=== PATIENT | female | born 1965 | race Caucasian/White ===

== ENCOUNTER → 2017-02-06 | Outpatient (CLI) | payer BC ==
[~2017-02-06] MED LIST: CETI10CA PO; CIPR500T78 PO; METR500T PO; PARO10TA21 PO; SIMV40TA4 PO
--- NOTE | 2017-02-07 13:44 | Diagnostic Imaging Report ---
EXAMINATION: Bilateral screening mammogram with a Computer Aided Detection (CAD) system. INDICATION: Screening. PERSONAL HISTORY: No current complaints stated on the questionnaire. COMPARISON: 10/26/2015. FINDINGS: The breasts are composed of scattered fibroglandular densities. No suspicious calcification or mass is seen. Allowing for technique and positional differences, no suspicious change is seen. IMPRESSION: No significant change. ACR BI-RADS Category 2: Benign findings. Result letter will be mailed to the patient. Note: At least 10% of breast cancer is not imaged by mammography. Dictated by: Dictated on workstation # [id number]
== END ==
LOC: RAD 08:45
PROVIDERS: ATTEND Family Medicine
DX: Z12.31 Encounter for screening mammogram for malignant neoplasm of breast (principal)
CPT/HCPCS: 77067

== ENCOUNTER → 2020-06-01 | Outpatient (CLI) | payer BC ==
[~2020-06-01] VITALS: Ht 160 cm; Wt 63.0 kg
[~2020-06-01] MED LIST changes: +ASPI-999 PO; +ATOR80TA76 PO; +CATHETER FLUSH 10 ML SYR IV PRN; +CETI10TA21 PO; +CLOP75TA28 PO; +FAMO20TA5 PO; +METO50TA7 PO; +NITR-65 PO; +REGADENOSON 0.4 MG/5 ML SYR (LEXISCAN) IV ONE
[2020-06-01 09:48] VITALS: BP 157/87
--- NOTE | 2020-06-01 19:49 | STRESS TEST ---
DATE OF SERVICE: 06/01/2020 RESTING AND POST REGADENOSON TECHNETIUM-99M TETROFOSMIN SPET CT IMAGING ORDERING PHYSICIAN: Dr. Hall. PRIMARY PHYSICIAN: Dr. He. CLINICAL DIAGNOSIS: Coronary artery disease. Baseline images were carried out after injection of 10.09 mCi of technetium-99m Tetrofosmin. This was followed by 0.4 mg regadenoson and 32.9 mCi of technetium-99m Tetrofosmin for stress imaging. The electrocardiogram showed sinus rhythm at baseline. The electrocardiogram did not change significantly with regadenoson infusion. The patient noted mild shortness of breath and a headache following regadenoson infusion, which resolved in a few minutes. Review of images at rest and following stress indicates anteroapical perfusion defect that is mostly fixed. Gated images show well preserved global left ventricular systolic function with a calculated ejection fraction of 52%. There is localized anteroapical hypokinesis to akinesis. Left ventricular end diastolic volume is 55 mL. TID is absent (0.98). CONCLUSIONS: 1. This study indicates an anteroapical infarction with a small amount of cholo-infarct ischemia. 2. Localized anteroapical hypokinesis to akinesis. 3. Well preserved global left ventricular systolic function with a calculated ejection fraction of 52%. Job ID: [id number] DocumentID: [id number] Dictated Date: 06/01/2020 15:11:26 Slope Tender Date: 06/01/2020 19:47:55 Dictated By: ISMAEL HALL MD, MA, FACP, FACC,
== END ==
LOC: CARD 07:53
PROVIDERS: ATTEND Internal Medicine Cardiovascular Disease
DX: I25.2 Old myocardial infarction (principal); I25.10 Atherosclerotic heart disease of native coronary artery without angina pectoris; I11.9 Hypertensive heart disease without heart failure; I65.23 Occlusion and stenosis of bilateral carotid arteries; E78.5 Hyperlipidemia, unspecified; I25.89 Other forms of chronic ischemic heart disease; Z95.5 Presence of coronary angioplasty implant and graft; Z72.0 Tobacco use
CPT/HCPCS: 78452; 93017; A9502

== ENCOUNTER → 2021-07-20 | Outpatient (CLI) | payer BC ==
[~2021-07-20] MED LIST changes: -CATHETER FLUSH 10 ML SYR IV PRN; -CETI10TA21 PO; +CETI10TA49 PO; -REGADENOSON 0.4 MG/5 ML SYR (LEXISCAN) IV ONE
--- NOTE | 2021-07-20 11:32 | Diagnostic Imaging Report ---
CLINICAL INDICATION: Patient with left calf pain. COMPARISON: None. PROCEDURE: Real-time left lower extremity venous Doppler duplex evaluation is performed from the inguinal region through the popliteal fossa. The calf venous structures are also evaluated. FINDINGS: The deep venous system is well visualized and is easily compressible. There is no evidence of deep venous thrombosis, valvular incompetence, or significant collateral circulation. IMPRESSION: There is no ultrasound Doppler evidence of deep venous thrombosis in the left lower extremity. Dictated by: Dictated on workstation # [id number]
== END ==
LOC: RAD 10:29
PROVIDERS: ATTEND Family Medicine
DX: M79.662 Pain in left lower leg (principal)

== ENCOUNTER 2022-01-24 12:59 | Observation (INO) | payer BC ==
[2022-01-24] VITALS (12 sets, daily range): BP systolic 106–151; BP diastolic 70–94
[~2022-01-24] VITALS: Ht 160 cm; Wt 63.2 kg
[2022-01-24] MEDS ORDERED: ASPIRIN 81 MG CHEW (CHILDREN'S ASA) PO ONE (13:30)
[2022-01-24] MEDS ORDERED: NITROGLYCERIN 0.4 MG SL TABS BTL 25'S SL ONE (13:42)
--- NOTE | 2022-01-24 13:43 | ED Chest Pain ---
General Chief Complaint: Chest Pain Stated Complaint: CP Source: patient Exam Limitations: no limitations History of Present Illness Date Seen by Provider: Jan 24, 2022 Time Seen by Provider: 13:33 Initial Comments PT ARRIVED BY PRIVATE VEHICLE WITH CHIEF COMPLAINT OF CHEST PAIN. PT WAS ALERT, ORIENTED X 4 AND AMBULATORY ON ARRIVAL. PT STATED ONSET WAS 1230 WHEN SHE WAS BENDING DOWN TO GET SOMETHING AND IT STARTED. NOTHING MAKES IT BETTER OR WORSE. PT HAS TAKEN 81 MG OF ASPIRIN. PT STATED PAIN IS STEADY ON LEFT SIDE OF CHEST WITH A SEVERITY OF 3/10 ON PAIN SCALE. PT DENIES ANY RADIATION TO BACK, JAW OR ARM. PT STATED SHE HAS HISTORY OF A HEART ATTACK AND PREVIOUSLY HAD A STENT PLACED. PT TAKES PLAVIX EVERY OTHER DAY. PT HAD COVID IN NOV 2021 AND HAS HAD A COUGH SINCE, BUT NO NEW COUGH OR PRODUCTION. PT DENIES FEVER, CHILLS, OR SOB. Location Injury Occurred: LEFT SIDE CHEST PAIN Timing/Duration: 1 hour Severity/Quality: mild Location: central Radiation: no radiation Activities at Onset: other (BENDING OVER TO GRAB SOMETHING UNDERNEATH HER DESK) Prior CP/Workup: cardiac cath, heart attack ASA po AIR TUBE RELEASER: Yes (81MG ASPIRIN AT HOME) NTG SL AIR TUBE RELEASER: No Associated Symptoms: No fever/chills, No shortness of breath Allergies and Home Medications Allergies Coded Allergies: Sulfa (Sulfonamide Antibiotics) (Unverified Allergy, Unknown, 10/21/14) Patient Home Medication List Home Medication List Reviewed: Yes Aspirin (Aspirin) 81 Mg Tab.chew, 81 MG PO DAILY Prescribed by: CHRIS TSAI on 08/14/19 1232 Atorvastatin Calcium (Atorvastatin Calcium) 80 Mg Tablet, 80 MG PO HS Prescribed by: CHRIS TSAI on 08/14/19 1232 Cetirizine HCl (Zyrtec) 10 Mg Tablet, 10 MG PO DAILY PRN for ALLERGIES, (Reported) Entered as Reported by: MIRZA CHANCE on 08/13/19 1030 Clopidogrel Bisulfate (Clopidogrel) 75 Mg Tablet, 75 MG PO DAILY Prescribed by: CHRIS TSAI on 08/14/19 1232 Famotidine (Famotidine) 20 Mg Tablet, 20 MG PO BID Prescribed by: CHRIS TSAI on 08/14/19 1232 Metoprolol Succinate (Metoprolol Succinate) 50 Mg Tab.er.24h, 50 MG PO DAILY Prescribed by: CHRIS TSAI on 08/14/19 1232 Nitrofurantoin Monohyd/M-Cryst (Macrobid 100 mg Capsule) 100 Mg Capsule, 1 TAB PO BID Prescribed by: CAM OLIVEIRA on 08/14/19 1624 Review of Systems Review of Systems Constitutional: see HPI; No fever EENTM: No Symptoms Reported, See HPI Respiratory: See HPI, Cough Cardiovascular: See HPI, Chest Pain Gastrointestinal: No Symptoms Reported, See HPI Genitourinary: No Symptoms Reported, See HPI Musculoskeletal: no symptoms reported, see HPI Skin: no symptoms reported, see HPI Psychiatric/Neurological: No Symptoms Reported, See HPI Endocrine: No Symptoms Reported, See HPI Hematologic/Lymphatic: No Symptoms Reported, See HPI Past Lronzix-Nqetrp-Ajagxm Hx Seasonal Allergies Seasonal Allergies: Yes Past Medical History Surgeries: Yes Appendectomy, Section, Hysterectomy, Oophorectomy, Orthopedic, Tonsillectomy Respiratory: No Cardiac: Yes High Cholesterol, Hypertension Neurological: No 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 Gastrointestinal: Yes (COLONOSCOPY 2010) Polyps Musculoskeletal: No Endocrine: No Cancer: No Psychosocial: Yes Anxiety Integumentary: No Blood Disorders: No Family Medical History Cardiovascular disease 19 MOTHER, Onset:50's - 60 FH: atrial fibrillation G8 BROTHER, Onset:Unknown Glaucoma Hypercholesterolemia G8 SISTER, Onset:Unknown Hypertension G8 SISTER, Onset:Unknown Kidney disease 19 FATHER, , Onset:60 years & older Physical Exam Vital Signs Vital Signs - First Documented 01/24/22 13:13 Temp 36.9 Pulse 67 Resp 18 B/P (MAP) 147/89 (108) Pulse Ox 97 Capillary Refill : Height, Weight, BMI Height: 5'3" Weight: 140lbs. oz. 63.127441wn; 24.60 BMI Method:Stated General Appearance: No Apparent Distress Neck: Full Range of Motion, Normal Inspection Respiratory: Lungs Clear, Normal Breath Sounds, No Accessory Muscle Use Cardiovascular: Regular Rate, Rhythm, No Gallop, No Murmur Gastrointestinal: Normal Bowel Sounds Extremity: Normal Capillary Refill, Normal Range of Motion Neurologic/Psychiatric: Alert, Oriented x3, Normal Mood/Affect Skin: Normal Color, Warm/Dry Progress/Results/Core Measures Results/Orders Lab Results Laboratory Tests Test 01/24/22 13:39 Range/Units White Blood Count 7.0 4.3-11.0 10^3/uL Red Blood Count 4.10 3.80-5.11 10^6/uL Hemoglobin 13.6 11.5-16.0 g/dL Hematocrit 40 35-52 % Mean Corpuscular Volume 98 80-99 fL Mean Corpuscular Hemoglobin 33 25-34 pg Mean Corpuscular Hemoglobin Concent 34 32-36 g/dL Red Cell Distribution Width 12.4 10.0-14.5 % Platelet Count 279 130-400 10^3/uL Mean Platelet Volume 9.6 9.0-12.2 fL Immature Granulocyte % (Auto) 0 % Neutrophils (%) (Auto) 61 42-75 % Lymphocytes (%) (Auto) 28 12-44 % Monocytes (%) (Auto) 9 0-12 % Eosinophils (%) (Auto) 2 0-10 % Basophils (%) (Auto) 0 0-10 % Neutrophils # (Auto) 4.2 1.8-7.8 10^3/uL Lymphocytes # (Auto) 1.9 1.0-4.0 10^3/uL Monocytes # (Auto) 0.6 0.0-1.0 10^3/uL Eosinophils # (Auto) 0.2 0.0-0.3 10^3/uL Basophils # (Auto) 0.0 0.0-0.1 10^3/uL Immature Granulocyte # (Auto) 0.0 0.0-0.1 10^3/uL Prothrombin Time 12.6 12.2-14.7 SEC INR Comment 0.9 0.8-1.4 Activated Partial Thromboplast Time 32 24-35 SEC D-Dimer 1.73 H 0.00-0.49 UG/ML Sodium Level 142 135-145 MMOL/L Potassium Level 4.1 3.6-5.0 MMOL/L Chloride Level 108 H 98-107 MMOL/L Carbon Dioxide Level 20 L 21-32 MMOL/L Anion Gap 14 5-14 MMOL/L Blood Urea Nitrogen 9 7-18 MG/DL Creatinine 0.75 0.60-1.30 MG/DL Estimat Glomerular Filtration Rate 93 BUN/Creatinine Ratio 12 Glucose Level 102 70-105 MG/DL Calcium Level 10.0 8.5-10.1 MG/DL Corrected Calcium 9.8 8.5-10.1 MG/DL Magnesium Level 2.0 1.6-2.4 MG/DL Total Bilirubin 0.4 0.1-1.0 MG/DL Aspartate Amino Transf (AST/SGOT) 22 5-34 U/L Alanine Aminotransferase (ALT/SGPT) 18 0-55 U/L Alkaline Phosphatase 124 40-136 U/L Myoglobin 20.2 10.0-92.0 NG/ML Troponin I < 0.028 <0.028 NG/ML B-Type Natriuretic Peptide 124.1 H <100.0 PG/ML Total Protein 7.5 6.4-8.2 GM/DL Albumin 4.3 3.2-4.5 GM/DL My Orders Orders - LA COELHO HELPDESK MANAGER Cbc With Automated Diff (01/24/22 13:17) Magnesium (01/24/22 13:17) Chest 1 View, Ap/Pa Only (01/24/22 13:17) Ekg Tracing (01/24/22 13:17) Comprehensive Metabolic Panel (01/24/22 13:17) Myoglobin Serum (01/24/22 13:17) Protime With Inr (01/24/22 13:17) Partial Thromboplastin Time (01/24/22 13:17) O2 (01/24/22 13:17) Monitor-Rhythm Ecg Trace Only (01/24/22 13:17) Lipid Panel (01/25/22 06:00) Ed Iv/Invasive Line Start (01/24/22 13:17) Bnp Gifty (01/24/22 13:17) Fibrin Degradation Products (01/24/22 13:17) Troponin I [place] (01/24/22 13:17) Aspirin Chewable Tablet (Baby Aspirin Ch (01/24/22 13:30) Nitroglycerin 0.4 Mg Btl 25's (Nitrostat (01/24/22 13:42) Ct Angio Chest W (01/24/22 14:25) Iohexol Injection (Omnipaque 350 Mg/Ml 1 (01/24/22 14:45) Received Contrast (Hold Metformin- Contr (01/24/22 14:45) Sodium Chloride Flush (Catheter Flush Sy (01/24/22 14:45) Ns (Ivpb) (Sodium Chloride 0.9% Ivpb Bag (01/24/22 14:45) Medications Given in ED Current Medications Medications Dose Ordered Sig/La Route Start Time Stop Time Status Last Admin Dose Admin Aspirin 324 mg ONCE ONCE PO 01/24/22 13:30 01/24/22 13:31 DC 01/24/22 13:43 324 MG Iohexol 75 ml ONCE ONCE IV 01/24/22 14:45 01/24/22 14:46 DC 01/24/22 14:45 66 ML Nitroglycerin 0.4 mg STK-MED ONCE SL 01/24/22 13:42 01/24/22 13:46 DC 01/24/22 13:43 0.4 MG Sodium Chloride 100 ml ONCE ONCE IV 01/24/22 14:45 01/24/22 14:46 DC 01/24/22 14:46 80 ML Vital Signs/I&O 01/24/22 13:13 Temp 36.9 Pulse 67 Resp 18 B/P (MAP) 147/89 (108) Pulse Ox 97 Departure Communication (Admissions) NAME: LOIS COLLIER [facility] REC#: [id number] PT STATUS: REG ER : 1965 PHYSICIAN: LA COELHO HELPDESK MANAGER ADMIT DATE: 01/24/22/ER Draft Date of Exam:01/24/22 CT ANGIO CHEST W EXAMINATION: CT angiography of the chest. TECHNIQUE: Contrast enhanced thin section helical images were obtained through the chest with intravenous contrast timed for the optimal opacification of the arterial structures per CTA protocol. Post-processing, reconstructions and interpretation of angiographic images of the vessels was performed. 3D MIP reconstructions were performed and reviewed. All CT scans use one or more of the following dose optimizing techniques: Automated exposure control, MA and/or KvP adjustment based on a patient size and exam type, or iterative reconstruction. HISTORY: Chest pain and elevated D-dimer. COMPARISON: None available. FINDINGS: There is no pulmonary embolism. There is no edema or pneumonia. No pleural effusion. No pneumothorax. No suspicious nodules. There is no axillary or supraclavicular lymphadenopathy. There is no mediastinal lymphadenopathy. Heart size is normal. There are mild coronary artery calcifications. No pericardial effusion. Aorta is normal in caliber. Limited views of the upper abdomen are unremarkable. There are no suspicious osseous lesions. IMPRESSION: 1. No pulmonary embolism, clear lungs. Dictated on workstation # [id number] Dict: 01/24/22 1449 Trans: 01/24/22 1453 [id number] Interpreted by: IRIS SANTANA MD Electronically signed by: 1441-the 2 nitroglycerin temporarily took her pain from a 3 out of 10 down to 1 out of 10 though it has returned at this time. Its only a 3 out of 10. I offered her something more for pain though she states she does not want anything else at this time. D-dimer is a little elevated so we will get a CT angio chest. 1524-spoke with Dr. Telles and Dr. TSAI. Given the ongoing chest pain will admit. Observation status, serial troponins. Impression Primary Impression: Chest pain Disposition: ADMITTED INPATIENT Condition: Stable Admissions Decision to Admit Reason: Admit from ER (General) Decision to Admit/Date: Jan 24, 2022 Time/Decision to Admit Time: 15:24 Departure-Patient Inst. Referrals: CHRIS TSAI DO (PCP/Family) Primary Care Physician LA COELHO APRN Jan 24, 2022 13:43
[2022-01-24 13:48] LABS: BASOPHILS % (AUTO) 0 % (0-10); EOSINOPHILS # (AUTO) 0.2 10^3/uL (0.0-0.3); EOSINOPHILS % (AUTO) 2 % (0-10); HEMATOCRIT 40 % (35-52); HEMOGLOBIN 13.6 g/dL (11.5-16.0); LYMPHOCYTES # (AUTO) 1.9 10^3/uL (1.0-4.0); LYMPHOCYTES % (AUTO) 28 % (12-44); MEAN CORPUSCULAR HEMOGLOBIN 33 pg (25-34); MEAN CORPUSCULAR HGB CONC 34 g/dL (32-36); MEAN CORPUSCULAR VOLUME 98 fL (80-99); MEAN PLATELET VOLUME 9.6 fL (9.0-12.2); MONOCYTES # (AUTO) 0.6 10^3/uL (0.0-1.0); MONOCYTES % (AUTO) 9 % (0-12); NEUTROPHILS # (AUTO) 4.2 10^3/uL (1.8-7.8); NEUTROPHILS % (AUTO) 61 % (42-75); PLATELET COUNT 279 10^3/uL (130-400)
[2022-01-24 14:05] LABS: ALBUMIN 4.3 GM/DL (3.2-4.5)
[2022-01-24 14:06] LABS: POTASSIUM 4.1 MMOL/L (3.6-5.0)
[2022-01-24 14:08] LABS: TOTAL PROTEIN 7.5 GM/DL (6.4-8.2)
[2022-01-24 14:10] LABS: BILIRUBIN,TOTAL 0.4 MG/DL (0.1-1.0)
[2022-01-24 14:12] LABS: CREATININE SERUM 0.75 MG/DL (0.60-1.30); INR 0.9 (0.8-1.4); PROTHROMBIN TIME PATIENT 12.6 SEC (12.2-14.7)
--- NOTE | 2022-01-24 14:18 | Diagnostic Imaging Report ---
INDICATION: Chest pain. COMPARISON: 08/12/2019. FINDINGS: Single frontal view of the chest demonstrates normal heart size and pulmonary vascularity. The lungs are well aerated and clear. No large pleural effusion or pneumothorax is seen. The visualized osseous structures show no acute abnormalities. IMPRESSION: 1. No acute cardiopulmonary process. Dictated by: Dictated on workstation # [id number]
[2022-01-24] MEDS ORDERED: HOLD METFORMIN - RECEIVED CONTRAST 20 ML VIAL IV SCH (14:45)
[2022-01-24] MEDS ORDERED: IOHEXOL 350 MG/ML 100 ML (OMNIPAQUE 350) VIAL IV ONE (14:45)
[2022-01-24] MEDS ORDERED: NS 100 ML (IVPB) BAG IV ONE (14:45)
[2022-01-24] MEDS ORDERED: CATHETER FLUSH 10 ML SYR IV PRN (14:45)
--- NOTE | 2022-01-24 14:53 | Diagnostic Imaging Report ---
EXAMINATION: CT angiography of the chest. TECHNIQUE: Contrast enhanced thin section helical images were obtained through the chest with intravenous contrast timed for the optimal opacification of the arterial structures per CTA protocol. Post-processing, reconstructions and interpretation of angiographic images of the vessels was performed. 3D MIP reconstructions were performed and reviewed. All CT scans use one or more of the following dose optimizing techniques: Automated exposure control, MA and/or KvP adjustment based on a patient size and exam type, or iterative reconstruction. HISTORY: Chest pain and elevated D-dimer. COMPARISON: None available. FINDINGS: There is no pulmonary embolism. There is no edema or pneumonia. No pleural effusion. No pneumothorax. No suspicious nodules. There is no axillary or supraclavicular lymphadenopathy. There is no mediastinal lymphadenopathy. Heart size is normal. There are mild coronary artery calcifications. No pericardial effusion. Aorta is normal in caliber. Limited views of the upper abdomen are unremarkable. There are no suspicious osseous lesions. IMPRESSION: 1. No pulmonary embolism, clear lungs. Dictated by: Dictated on workstation # [id number]
--- NOTE | 2022-01-24 15:22 | Consultation-Cardiology ---
HPI-Cardiology Cardiology Consultation: Date of Consultation 01/24/22 Time Seen by a Provider: 15:30 Date of Admission 01-24-22 Attending Physician Admitting Physician Chris He DO Consulting Physician Haleigh Hall MD HPI: Chief Complaint: Chest pain Ms. Samaniego is a 56 yr old female who is being admitted to [facility] from the ED with c/o CP. 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 No c/o SOB, diaphoresis, palpitations, syncope or near syncope. She reports the discomfort has been constant all day. Nothing makes it worse. She reports she received one nitro sublingual which had very little, if any, change in the discomfort. She reports she has been compliant with her medications. No c/o LE swelling. No c/o n/v/d. Review of Systems-Cardiology Review of Systems Constitutional: No chills, No fever, No lightheadedness, No malaise Eyes: No vision change Ears/Nose/Throat: No epistaxis, No recent hearing loss Respiratory: As described under HPI Cardiovascular: As described under HPI Gastrointestinal: As described under HPI Genitourinary: No dysuria, No hematuria Musculoskeletal: no symptoms reported Skin: No rash on exposed areas, No ulcerations on exposed areas Psychiatric/Neurological: No anxiety, No depression, No seizure, No focal weakness, No syncope Hematologic: No bleeding abnormalities MFI-Yknyia-Ldlzxe Hx Patient Social History Smoking Status: Current Everyday Smoker 2nd Hand Smoke Exposure: Yes Have you traveled recently?: No Alcohol Use?: Yes Pt feels they are or have been: No Tobacco type used: Cigarettes Past Medical History PMH As described under Assessment. Family Medical History Family Medical History: Reported family h/o mother having CAD, diagnosed in her 50's. She reports a brother with a-fib. She reports a sister with HTN. Family History: 19 FATHER, Kidney disease, Onset:60 years & older 19 MOTHER Cardiovascular disease, Onset:50's - 60 G8 BROTHER FH: atrial fibrillation, Onset:Unknown G8 SISTER Hypercholesterolemia, Onset:Unknown Hypertension, Onset:Unknown Relation not specified for: Glaucoma Allergies and Home Medications Allergies Coded Allergies: Sulfa (Sulfonamide Antibiotics) (Unverified Allergy, Unknown, 10/21/14) nitrofurantoin (Verified Allergy, Unknown, 01/24/22) rash over torso Patient Home Medication List Amlodipine Besylate (Norvasc) 5 Mg Tablet, 5 MG PO DAILY, (Reported) Entered as Reported by: Joceline Almeida on 01/24/221637 Last Action: Reviewed Aspirin (Aspirin) 81 Mg Tab.chew, 81 MG PO DAILY Prescribed by: CHRIS HE on 08/14/19 123 Last Action: Reviewed Atorvastatin Calcium (Atorvastatin Calcium) 80 Mg Tablet, 80 MG PO HS Prescribed by: CHRIS HE on 08/14/19 123 Last Action: Continued Cetirizine HCl (Zyrtec) 10 Mg Tablet, 10 MG PO DAILY PRN for ALLERGIES, (Reported) Entered as Reported by: MIRZA CHANCE on 08/13/19 1030 Last Action: Reviewed Clopidogrel Bisulfate (Clopidogrel) 75 Mg Tablet, 75 MG PO DAILY Prescribed by: CHRIS HE on 08/14/19 123 Last Action: Reviewed Famotidine (Famotidine) 20 Mg Tablet, 20 MG PO BID Prescribed by: CHRIS HE on 08/14/19 123 Last Action: Reviewed Metoprolol Succinate (Metoprolol Succinate) 50 Mg Tab.er.24h, 50 MG PO DAILY Prescribed by: CHRIS HE on 08/14/19 123 Last Action: Continued Paroxetine HCl (Paroxetine HCl) 20 Mg Tablet, 20 MG PO DAILY, (Reported) Entered as Reported by: Joceline Almeida on 01/24/22 163 Last Action: Continued Discontinued Medications Nitrofurantoin Monohyd/M-Cryst (Macrobid 100 mg Capsule) 100 Mg Capsule, 1 TAB PO BID Discontinued Reason: No Longer Taking Prescribed by: CAM OLIVEIRA on 08/14/19 162 Last Action: Discontinued Physical Exam-Cardiology Physical Exam Vital Signs/I&O 01/24/22 01/24/22 01/25/22 01/25/22 22:05 23:10 01:08 03:25 Temp 36.5 36.3 Pulse 64 69 61 53 Resp 20 20 B/P (MAP) 106/71 (83) 108/70 (83) 113/69 (84) Pulse Ox 95 96 O2 Delivery Room Air Room Air 01/25/22 01/25/22 01/25/22 07:00 08:02 08:15 Pulse 61 55 Resp 16 B/P (MAP) 129/80 (96) Pulse Ox 97 O2 Delivery Room Air Room Air 01/25/22 00:00 Intake Total 200 ml Balance 200 ml Capillary Refill : Less Than 3 Seconds Constitutional: AAO x 3, well-developed, well-nourished HEENT: PERRL, hearing is well preserved, oral hygience is good Neck: No carotid bruit; carotid pulses are 2 + bilaterally Respiratory: No accessory muscle use, No respiratory distress; chest expansion is symmetric, chest is bilaterally symmetric, lungs clear to auscultation Cardiovascular: regular rate-rhythm; No JVD; S1 and S2 Gastrointestinal: No tender; soft, round Extremities: no lower extremity edema bilateral Neurologic/Psychiatric: grossly intact (moves all extremities) Skin: No rash on exposed areas, No ulcerations on exposed areas Data Review Labs Laboratory Tests 01/24/22 13:39: White Blood Count 7.0, Red Blood Count 4.10, Hemoglobin 13.6, Hematocrit 40, Mean Corpuscular Volume 98, Mean Corpuscular Hemoglobin 33, Mean Corpuscular Hemoglobin Concent 34, Red Cell Distribution Width 12.4, Platelet Count 279, Mean Platelet Volume 9.6, Immature Granulocyte % (Auto) 0, Neutrophils (%) (Auto) 61, Lymphocytes (%) (Auto) 28, Monocytes (%) (Auto) 9, Eosinophils (%) (Auto) 2, Basophils (%) (Auto) 0, Neutrophils # (Auto) 4.2, Lymphocytes # (Auto) 1.9, Monocytes # (Auto) 0.6, Eosinophils # (Auto) 0.2, Basophils # (Auto) 0.0, Immature Granulocyte # (Auto) 0.0, Prothrombin Time 12.6, INR Comment 0.9, Activated Partial Thromboplast Time 32, D-Dimer 1.73H, Sodium Level 142, Potassium Level 4.1, Chloride Level 108H, Carbon Dioxide Level 20L, Anion Gap 14, Blood Urea Nitrogen 9, Creatinine 0.75, Estimat Glomerular Filtration Rate 93, BUN/Creatinine Ratio 12, Glucose Level 102, Calcium Level 10.0, Corrected Calcium 9.8, Magnesium Level 2.0, Total Bilirubin 0.4, Aspartate Amino Transf (AST/SGOT) 22, Alanine Aminotransferase (ALT/SGPT) 18, Alkaline Phosphatase 124, Myoglobin 20.2, Troponin I < 0.028, B-Type Natriuretic Peptide 124.1H, Total Protein 7.5, Albumin 4.3 01/24/22 17:18: Troponin I < 0.028 01/25/22 05:26: Troponin I < 0.028, Triglycerides Level 149, Cholesterol Level 178, LDL Cholesterol Direct 122, VLDL Cholesterol 30, HDL Cholesterol 36L Radiology NAME: LOIS SAMANIEGO [facility] REC#: [id number] PT STATUS: REG ER : 1965 PHYSICIAN: LA COELHO APRN ADMIT DATE: 01/24/22/ER Draft Date of Exam:01/24/22 CHEST 1 VIEW, AP/PA ONLY INDICATION: Chest pain. COMPARISON: 08/12/2019. FINDINGS: Single frontal view of the chest demonstrates normal heart size and pulmonary vascularity. The lungs are well aerated and clear. No large pleural effusion or pneumothorax is seen. The visualized osseous structures show no acute abnormalities. IMPRESSION: 1. No acute cardiopulmonary process. Dictated on workstation # [id number] Dict: 01/24/22 1415 Trans: 01/24/22 1417 [id number] Interpreted by: MAY PEÑA MD Electronically signed by: NAME: LOIS SAMANIEGO [facility] REC#: [id number] PT STATUS: REG ER : 1965 PHYSICIAN: LA COELHO APRN ADMIT DATE: 01/24/22/ER Draft Date of Exam:01/24/22 CT ANGIO CHEST W EXAMINATION: CT angiography of the chest. TECHNIQUE: Contrast enhanced thin section helical images were obtained through the chest with intravenous contrast timed for the optimal opacification of the arterial structures per CTA protocol. Post-processing, reconstructions and interpretation of angiographic images of the vessels was performed. 3D MIP reconstructions were performed and reviewed. All CT scans use one or more of the following dose optimizing techniques: Automated exposure control, MA and/or KvP adjustment based on a patient size and exam type, or iterative reconstruction. HISTORY: Chest pain and elevated D-dimer. COMPARISON: None available. FINDINGS: There is no pulmonary embolism. There is no edema or pneumonia. No pleural effusion. No pneumothorax. No suspicious nodules. There is no axillary or supraclavicular lymphadenopathy. There is no mediastinal lymphadenopathy. Heart size is normal. There are mild coronary artery calcifications. No pericardial effusion. Aorta is normal in caliber. Limited views of the upper abdomen are unremarkable. There are no suspicious osseous lesions. IMPRESSION: 1. No pulmonary embolism, clear lungs. Dictated on workstation # [id number] Dict: 01/24/22 1449 Trans: 01/24/22 1453 [id number] Interpreted by: IRIS SANTANA MD Electronically signed by: ECG Impression ECG Initial ECG Rhythm: Normal Sinus A/P-Cardiology Assessment/Admission Diagnosis Chest pain - undetermined etiology CAD. - Ac NSTEMI, treated with primary PCI in the late hours of 08/12/19. - Card cath and PCI of 08/12/19: Coronary artery disease consisting of proximal occlusion of a small caliber high diagonal branch of the left anterior radha cending to which successful balloon angioplasty was carried out with Emerge 1.5 x 8 mm balloon and which restored normal antegrade flow. The left anterior descending had 70% mid vessel stenosis to which successful stenting was carried out with [place] 2.0 x 15 mm stent with good results. The rest of the coronary vessels have mild plaques. Elevated left ventricular end-diastolic pressure. Well preserved global left ventricular systolic function with an ejection fraction of approximately 60%. - MPI of Jun 01, 2020 indicated an anteroapical infarction with a small amt of cholo-infarct ischemia which fits with her known CAD, no c/o CP at this time, localized anteroapical hypokinesis to akinesis. LVEF 52% Chronic tobacco use - cessation advised Strong fam h/o premature CAD Hypertension Hyperlipidemia - tansaminase elevation with doses higher than atorvastatin 40 mg daily) - followed by Dr. He Carotid dz - minimal on carotid u/s of Nov 2019 Discussion and Recomendations Chest pain of undetermined etiology - no evidence of ACS thus far - continue serial troponins - MPI tomorrow d/t c/o and known h/o CAD with previous stent placement - continue Plavix and ASA Continue home medications Monitor lab - replace electrolytes as indicated Add PPI Further recs will be based on her hospital course We would like to thank medical services for this consult Clinical Quality Measures AMI/AHF: ASA po Prior to arrival: Yes (81MG ASPIRIN AT HOME) DEANN TELLEZ Jan 24, 2022 15:21
[2022-01-24] MEDS ORDERED: NICOTINE 21 MG (NICODERM) PATCH TD ONE (15:30)
[2022-01-24] MEDS ORDERED: NICOTINE 2 MG LOZENGE (COMMIT) MM PRN (15:30)
[2022-01-24] MEDS ORDERED: morphine INJ 4 MG/ML 1 ML (VIAL/SYRINGE) IV PRN (16:15)
[2022-01-24] MEDS ORDERED: REGADENOSON 0.4 MG/5 ML SYR (LEXISCAN) IV ONE (16:15)
[2022-01-24] MEDS ORDERED: ONDANSETRON 4 MG/2 ML (SDV) Z0FRAN IVP PRN (16:15)
[2022-01-24] MEDS ORDERED: NITROGLYCERIN 0.4 MG SL TABS BTL 25'S SL PRN (16:15)
--- NOTE | 2022-01-24 16:37 | Consultation-Cardiology ---
HPI-Cardiology Cardiology Consultation: Date of Consultation 01/24/22 Time Seen by a Provider: 16:20 Date of Admission Attending Physician Chris He DO Admitting Physician Chris He DO Consulting Physician ISMAEL ANDRE MD, MA, FACP, FACC, FSCAI, CCDS HPI: Chief Complaint: Chest pain Ms. Samaniego is a 56 yr old female who is being admitted to [facility] from the ED with c/o CP. 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 No c/o SOB, diaphoresis, palpitations, syncope or near syncope. She reports the discomfort has been constant all day. Nothing makes it worse. She reports she received one nitro sublingual which had very little, if any, change in the discomfort. She reports she has been compliant with her medications. No c/o LE swelling. No c/o n/v/d. Review of Systems-Cardiology Review of Systems Constitutional: No chills, No fever, No lightheadedness, No malaise Eyes: No vision change Ears/Nose/Throat: No epistaxis, No recent hearing loss Respiratory: As described under HPI Cardiovascular: As described under HPI Gastrointestinal: As described under HPI Genitourinary: No dysuria, No hematuria Musculoskeletal: no symptoms reported Skin: No rash on exposed areas, No ulcerations on exposed areas Psychiatric/Neurological: No anxiety, No depression, No seizure, No focal weakness, No syncope Hematologic: No bleeding abnormalities OTG-Sitsqk-Hsllrr Hx Patient Social History Smoking Status: Current Everyday Smoker 2nd Hand Smoke Exposure: Yes Have you traveled recently?: No Alcohol Use?: Yes Pt feels they are or have been: No Tobacco type used: Cigarettes Past Medical History PMH As described under Assessment. Family Medical History Family Medical History: Reported family h/o mother having CAD, diagnosed in her 50's. She reports a brother with a-fib. She reports a sister with HTN. Family History: Cardiovascular disease 19 MOTHER, Onset:50's - 60 FH: atrial fibrillation G8 BROTHER, Onset:Unknown Glaucoma Hypercholesterolemia G8 SISTER, Onset:Unknown Hypertension G8 SISTER, Onset:Unknown Kidney disease 19 FATHER, , Onset:60 years & older Allergies and Home Medications Allergies Coded Allergies: Sulfa (Sulfonamide Antibiotics) (Unverified Allergy, Unknown, 10/21/14) Patient Home Medication List Home Medication List Reviewed: Yes Aspirin (Aspirin) 81 Mg Tab.chew, 81 MG PO DAILY Prescribed by: CHRIS HE on 08/14/19 1232 Atorvastatin Calcium (Atorvastatin Calcium) 80 Mg Tablet, 80 MG PO HS Prescribed by: CHRIS HE on 08/14/19 1232 Cetirizine HCl (Zyrtec) 10 Mg Tablet, 10 MG PO DAILY PRN for ALLERGIES, (Reported) Entered as Reported by: MIRZA CHANCE on 08/13/19 1030 Clopidogrel Bisulfate (Clopidogrel) 75 Mg Tablet, 75 MG PO DAILY Prescribed by: CHRIS HE on 08/14/19 1232 Famotidine (Famotidine) 20 Mg Tablet, 20 MG PO BID Prescribed by: CHRIS HE on 08/14/19 1232 Metoprolol Succinate (Metoprolol Succinate) 50 Mg Tab.er.24h, 50 MG PO DAILY Prescribed by: CHRIS HE on 08/14/19 1232 Nitrofurantoin Monohyd/M-Cryst (Macrobid 100 mg Capsule) 100 Mg Capsule, 1 TAB PO BID Prescribed by: CAM OLIVEIRA on 08/14/19 1624 Physical Exam-Cardiology Physical Exam Vital Signs/I&O 01/24/22 01/24/22 01/24/22 13:13 15:59 16:05 Temp 36.9 36.4 Pulse 67 56 59 Resp 18 18 18 B/P (MAP) 147/89 (108) 128/73 138/87 (104) Pulse Ox 97 98 98 O2 Delivery Room Air Capillary Refill : Less Than 3 Seconds Constitutional: AAO x 3, well-developed, well-nourished HEENT: PERRL, hearing is well preserved, oral hygience is good Neck: No carotid bruit; carotid pulses are 2 + bilaterally Respiratory: No accessory muscle use, No respiratory distress; chest expansion is symmetric, chest is bilaterally symmetric, lungs clear to auscultation Cardiovascular: regular rate-rhythm; No JVD; S1 and S2 Gastrointestinal: No tender; soft, round Extremities: no lower extremity edema bilateral Neurologic/Psychiatric: grossly intact (moves all extremities) Skin: No rash on exposed areas, No ulcerations on exposed areas Data Review Labs Laboratory Tests 01/24/22 13:39: White Blood Count 7.0, Red Blood Count 4.10, Hemoglobin 13.6, Hematocrit 40, Mean Corpuscular Volume 98, Mean Corpuscular Hemoglobin 33, Mean Corpuscular Hemoglobin Concent 34, Red Cell Distribution Width 12.4, Platelet Count 279, Mean Platelet Volume 9.6, Immature Granulocyte % (Auto) 0, Neutrophils (%) (Auto) 61, Lymphocytes (%) (Auto) 28, Monocytes (%) (Auto) 9, Eosinophils (%) (Auto) 2, Basophils (%) (Auto) 0, Neutrophils # (Auto) 4.2, Lymphocytes # (Auto) 1.9, Monocytes # (Auto) 0.6, Eosinophils # (Auto) 0.2, Basophils # (Auto) 0.0, Immature Granulocyte # (Auto) 0.0, Prothrombin Time 12.6, INR Comment 0.9, Activated Partial Thromboplast Time 32, D-Dimer 1.73H, Sodium Level 142, Potassium Level 4.1, Chloride Level 108H, Carbon Dioxide Level 20L, Anion Gap 14, Blood Urea Nitrogen 9, Creatinine 0.75, Estimat Glomerular Filtration Rate 93, BUN/Creatinine Ratio 12, Glucose Level 102, Calcium Level 10.0, Corrected Calcium 9.8, Magnesium Level 2.0, Total Bilirubin 0.4, Aspartate Amino Transf (AST/SGOT) 22, Alanine Aminotransferase (ALT/SGPT) 18, Alkaline Phosphatase 124, Myoglobin 20.2, Troponin I < 0.028, B-Type Natriuretic Peptide 124.1H, Total Protein 7.5, Albumin 4.3 A/P-Cardiology Assessment/Admission Diagnosis Chest pain - undetermined etiology CAD. - Ac NSTEMI, treated with primary PCI in the late hours of 08/12/19. - Card cath and PCI of 08/12/19: Coronary artery disease consisting of proximal occlusion of a small caliber high diagonal branch of the left anterior descending to which successful balloon angioplasty was carried out with Emerge 1.5 x 8 mm balloon and which restored normal antegrade flow. The left anterior descending had 70% mid vessel stenosis to which successful stenting was carried out with [place] 2.0 x 15 mm stent with good results. The rest of the coronary vessels have mild plaques. Elevated left ventricular end-diastolic pressure. Well preserved global left ventricular systolic function with an ejection fraction of approximately 60%. - MPI of Jun 01, 2020 indicated an anteroapical infarction with a small amt of p thai-infarct ischemia which fits with her known CAD, no c/o CP at this time, localized anteroapical hypokinesis to akinesis. LVEF 52% Chronic tobacco use - cessation advised Strong fam h/o premature CAD Hypertension Hyperlipidemia - tansaminase elevation with doses higher than atorvastatin 40 mg daily) - followed by Dr. He Carotid dz - minimal on carotid u/s of Nov 2019 Discussion and Recomendations Chest pain of undetermined etiology - no evidence of ACS thus far - continue serial troponins - MPI tomorrow d/t c/o and known h/o CAD with previous stent placement - continue Plavix and ASA Continue home medications Monitor lab - replace electrolytes as indicated Add PPI Further recs will be based on her hospital course We would like to thank medical services for this consult Clinical Quality Measures AMI/AHF: ASA po Prior to arrival: Yes (81MG ASPIRIN AT HOME) ISMAEL ANDRE MD FACP FACC CCDS Jan 24, 2022 16:37
[2022-01-24] MEDS ORDERED: PARO20TA5 PO ×2 (16:38)
[2022-01-24] MEDS ORDERED: AMLO5TAB4 PO ×2 (16:38)
[2022-01-24] MEDS: LACTATED RINGERS 1,000 ML IV SCH (17:37)
--- NOTE | 2022-01-24 18:26 | History & Physical ---
History of Present Illness History of Present Illness Reason for visit/HPI This is a 56 year old female who was at work eating lunch when she dropped her parmesan cheese packet on the floor and bent over to pick it up and had the onset of left sided substernal chest pain. The pain was initially sharp and then remained as a dull pain. It did not radiate and she had no associated shortness of air, no nausea and no diaphoresis. She presented to the emergency room and her EKG showed no acute ST segment changes and her cardiac enzymes were negative. She was given sublingual nitro which really didn't change her pain. She has a history of coronary artery disease with stent placement in 2019. She also has a strong family history of CAD. She continues to smoke. Due to her history with ongoing chest discomfort it was decided to admit her for further evaluation and treatment. Date of Admission Jan 24, 2022 at 15:22 Date Seen by a Provider: Jan 24, 2022 Time Seen by a Provider: 18:21 I consulted on this patient on 01/24/22 18:21 Attending Physician Chris He DO Admitting Physician Chris He DO Consult Cardiology--Dr. Hall Allergies and Home Medications Allergies Coded Allergies: Sulfa (Sulfonamide Antibiotics) (Unverified Allergy, Unknown, 10/21/14) nitrofurantoin (Verified Allergy, Unknown, 01/24/22) rash over torso Patient Home Medication List Home Medication List Reviewed: Yes Amlodipine Besylate (Norvasc) 5 Mg Tablet, 5 MG PO DAILY, (Reported) Entered as Reported by: Joceline Almeida on 01/24/22 1638 Last Action: Reviewed Aspirin (Aspirin) 81 Mg Tab.chew, 81 MG PO DAILY Prescribed by: CHRIS HE on 08/14/19 1232 Last Action: Reviewed Atorvastatin Calcium (Atorvastatin Calcium) 80 Mg Tablet, 80 MG PO HS Prescribed by: CHRIS HE on 08/14/19 1232 Last Action: Reviewed Cetirizine HCl (Zyrtec) 10 Mg Tablet, 10 MG PO DAILY PRN for ALLERGIES, (Reported) Entered as Reported by: MIRZA CHANCE on 08/13/19 1030 Last Action: Reviewed Clopidogrel Bisulfate (Clopidogrel) 75 Mg Tablet, 75 MG PO DAILY Prescribed by: CHRIS HE on 08/14/19 1232 Last Action: Reviewed Famotidine (Famotidine) 20 Mg Tablet, 20 MG PO BID Prescribed by: CHRIS HE on 08/14/19 1232 Last Action: Reviewed Metoprolol Succinate (Metoprolol Succinate) 50 Mg Tab.er.24h, 50 MG PO DAILY Prescribed by: CHRIS HE on 08/14/19 1232 Last Action: Reviewed Paroxetine HCl (Paroxetine HCl) 20 Mg Tablet, 20 MG PO DAILY, (Reported) Entered as Reported by: Joceline Almeida on 01/24/22 1638 Last Action: Reviewed Discontinued Medications Nitrofurantoin Monohyd/M-Cryst (Macrobid 100 mg Capsule) 100 Mg Capsule, 1 TAB PO BID Discontinued Reason: No Longer Taking Prescribed by: CAM OLIVEIRA on 08/14/19 1624 Last Action: Discontinued Past Wevkppj-Fyxrrf-Nfjxct Hx Patient Social History Marrital Status: Employed/Student: employed Tobacco Use?: Yes Tobacco type used: Cigarettes Smoking Status: Current Everyday Smoker Substance use?: No Alcohol Use?: Yes Alcohol type: Beer, Wine Alcohol Frequency: Rarely Pt feels they are or have been: No Immunizations Up To Date First/Initial COVID19 Vaccinat: 2020 Second COVID19 Vaccination Sheldon: 2020 Seasonal Allergies Seasonal Allergies: Yes Current Status status: No Advance Directives: No Communicates: Verbally Primary Language: Welsh Preferred Spoken Language: Welsh Is interpretation needed?: No Implanted or Applied Medical D: None Past Medical History Surgeries: Appendectomy, Section, Hysterectomy, Oophorectomy, Orthopedic, Tonsillectomy High Cholesterol, Hypertension [employer]PRESENT[employer]IVE History: Hysterectomy Polyps Anxiety Blood Disorders: No Family Medical History Cardiovascular disease 19 MOTHER, Onset:50's - 60 FH: atrial fibrillation G8 BROTHER, Onset:Unknown Glaucoma Hypercholesterolemia G8 SISTER, Onset:Unknown Hypertension G8 SISTER, Onset:Unknown Kidney disease 19 FATHER, , Onset:60 years & older Review of Systems Constitutional: No no symptoms reported, No see HPI, No chills, No diaphoresis, No dizziness, No fever, No malaise, No weakness, No weight gain, No weight loss, No other EENTM: No see HPI, No no symptoms reported, No ear discharge, No hearing loss, No ear pain, No blurred vision, No double vision, No eye pain, No tearing, No vision loss, No dental problems, No hoarseness, No mouth pain, No mouth swel ling, No epistaxis, No nose congestion, No nose pain, No throat pain, No throat swelling, No other Respiratory: No no symptoms reported, No see HPI, No cough, No dyspnea on exertion, No hemoptysis, No orthopnea, No phlegm, No short of breath, No stridor, No wheezing, No other Cardiovascular: chest pain, vascular heart diseas Gastrointestinal: diarrhea (IBS) Genitourinary: No no symptoms reported, No see HPI, No decreased output, No discharge, No dysuria, No frequency, No hematuria, No hesitancy, No incontinence, No nocturia, No pain, No other Musculoskeletal: No no symptoms reported, No see HPI, No back pain, No gout, No joint pain, No joint swelling, No muscle pain, No muscle stiffness, No muscle cramps, No muscle twitching, No muscle weakness, No neck pain, No other Skin: No no symptoms reported, No see HPI, No change in color, No change in hair/nails, No dryness, No hx of skin cancer, No lesions, No lumps, No pruritus, No rash, No other Psychiatric/Neurological: Anxiety Physical Exam Vital Signs Vital Signs - First Documented 01/24/22 01/24/22 13:13 16:05 Temp 36.9 Pulse 67 Resp 18 B/P (MAP) 147/89 (108) Pulse Ox 97 O2 Delivery Room Air Capillary Refill : Less Than 3 Seconds Height, Weight, BMI Height: 5'3" Weight: 140lbs. oz. [id number]; 24.72 BMI Method:Stated General Appearance: No Apparent Distress HEENT: Normal ENT Inspection Neck: Supple Respiratory: Lungs Clear, Decreased Breath Sounds Cardiovascular: Regular Rate, Rhythm Gastrointestinal: Normal Bowel Sounds, Non Tender, Soft Rectal: Deferred Back: No CVA Tenderness Extremity: Non Tender, No Calf Tenderness, No Pedal Edema Neurologic/Psychiatric: Alert, Oriented x3 Skin: Warm/Dry Comments Laboratory Tests 01/24/22 13:39: White Blood Count 7.0, Red Blood Count 4.10, Hemoglobin 13.6, Hematocrit 40, Mean Corpuscular Volume 98, Mean Corpuscular Hemoglobin 33, Mean Corpuscular Hemoglobin Concent 34, Red Cell Distribution Width 12.4, Platelet Count 279, Mean Platelet Volume 9.6, Immature Granulocyte % (Auto) 0, Neutrophils (%) (Auto) 61, Lymphocytes (%) (Auto) 28, Monocytes (%) (Auto) 9, Eosinophils (%) (Auto) 2, Basophils (%) (Auto) 0, Neutrophils # (Auto) 4.2, Lymphocytes # (Auto) 1.9, Monocytes # (Auto) 0.6, Eosinophils # (Auto) 0.2, Basophils # (Auto) 0.0, Immature Granulocyte # (Auto) 0.0, Prothrombin Time 12.6, INR Comment 0.9, Activated Partial Thromboplast Time 32, D-Dimer 1.73H, Sodium Level 142, Potassium Level 4.1, Chloride Level 108H, Carbon Dioxide Level 20L, Anion Gap 14, Blood Urea Nitrogen 9, Creatinine 0.75, Estimat Glomerular Filtration Rate 93, BUN/Creatinine Ratio 12, Glucose Level 102, Calcium Level 10.0, Corrected Calcium 9.8, Magnesium Level 2.0, Total Bilirubin 0.4, Aspartate Amino Transf (AST/SGOT) 22, Alanine Aminotransferase (ALT/SGPT) 18, Alkaline Phosphatase 124, Myoglobin 20.2, Troponin I < 0.028, B-Type Natriuretic Peptide 124.1H, Total Protein 7.5, Albumin 4.3 01/24/22 17:18: Troponin I < 0.028 Assessment/Plan Assessment and Plan 1. Chest Pain--uncertain etiology, repeat cardiac enzymes, consult cardiology, give protonix for GI etiology 2. Hypertension--resume metoprolol 3. History of CAD with Stent placement in 2019--resume plavix and aspirin and atorvastatin 4. Tobacco Abuse--ongoing, cessation has been advised 5. Anxiety--stable on paxil Admission Diagnosis Admission Status: Observation Clinical Quality Measures AMI/AHF: ASA po Prior to arrival: Yes (81MG ASPIRIN AT HOME) CHRIS HE DO Jan 24, 2022 18:26
[2022-01-24] MEDS ORDERED: traZODone 50 MG (DESYREL) TAB PO PRN (18:30)
[2022-01-24] MEDS ORDERED: PANTOPRAZOLE 40 MG (PROTONIX) VIAL IV NR (18:30)
[2022-01-24] MEDS ORDERED: ACETAMINOPHEN 325 MG TABLET PO PRN (18:30)
[2022-01-25 03:25] VITALS: BP 113/69
[2022-01-25] MEDS: LACTATED RINGERS 1,000 ML IV SCH (03:25)
[2022-01-25 06:08] LABS: TRIGLYCERIDES 149 MG/DL (<150); VLDL CHOLESTEROL 30 MG/DL (5-40)
[2022-01-25 06:13] LABS: CHOLESTEROL 178 MG/DL (< 200)
[2022-01-25 06:14] LABS: HDL CHOLESTEROL 36 MG/DL (40-60)
--- NOTE | 2022-01-25 07:15 | Progress Note ---
Subjective Subjective Date Seen by Provider: Jan 25, 2022 Time Seen by Provider: 07:15 F/u on pt who presented yesterday with left sided chest pain and a hx of CAD with stent placement. Pt reports continued 2/10 left sided chest pain that is dull and "feels heavy." She reports feeling well overall, and expresses that she would like to be D/C home if her tests this morning are normal. She reports a mild cough when she wakes up in the morning, but states this is a continued symptom from COVID in November. The pt also reports a recent diarrheal IBS flare that subsided two days ago, from which she feels bloated. Pt denies palpitations, N/V/D, and fever at this time. Review of Systems General: No Chills; Fatigue HEENT: Head Aches; No Visual Changes Pulmonary: No Dyspnea; Cough Cardiovascular: Chest Pain; No: Palpitations Gastrointestinal: No: Nausea, Vomiting, Abdominal Pain, Diarrhea Genitourinary: No Dysuria, No Frequency Musculoskeletal: back pain (when she coughs); No: neck pain Neurological: No: Weakness, Change in speech Objective Exam Vital Signs Vital Signs Date Time Temp Pulse Resp B/P (MAP) Pulse Ox O2 Delivery O2 Flow Rate FiO2 01/25/22 03:25 36.3 53 20 113/69 (84) 96 Room Air 01/25/22 01:08 61 01/24/22 23:10 36.5 69 20 108/70 (83) 95 Room Air 01/24/22 22:05 64 106/71 (83) 01/24/22 21:05 62 112/72 (85) 01/24/22 20:05 58 112/73 (86) 01/24/22 19:25 Room Air 01/24/22 19:05 35.6 56 18 125/80 (95) 97 Room Air 01/24/22 19:00 57 01/24/22 18:05 54 139/86 (103) 01/24/22 17:35 57 127/82 (97) 01/24/22 17:23 60 01/24/22 17:16 Room Air 01/24/22 17:05 58 147/88 (107) 01/24/22 16:50 63 143/90 (107) 01/24/22 16:35 65 137/87 (104) 01/24/22 16:20 65 151/94 (113) 01/24/22 16:05 36.4 59 18 138/87 (104) 98 Room Air 01/24/22 15:59 56 18 128/73 98 01/24/22 13:13 36.9 67 18 147/89 (108) 97 I & O 01/25/22 07:00 Intake Total 1200 ml Balance 1200 ml General Appearance: No Apparent Distress, WD/WN Respiratory: Lungs Clear, Decreased Breath Sounds Cardiovascular: Regular Rate, Rhythm Gastrointestinal: Non Tender, Soft Extremity: Normal Inspection, Non Tender, No Pedal Edema Neurologic/Psychiatric: Alert, Oriented x3, Normal Mood/Affect Skin: Normal Color, Warm/Dry Results Lab Laboratory Tests 01/24/22 13:39: White Blood Count 7.0, Red Blood Count 4.10, Hemoglobin 13.6, Hematocrit 40, Mean Corpuscular Volume 98, Mean Corpuscular Hemoglobin 33, Mean Corpuscular Hemoglobin Concent 34, Red Cell Distribution Width 12.4, Platelet Count 279, Mean Platelet Volume 9.6, Immature Granulocyte % (Auto) 0, Neutrophils (%) (Auto) 61, Lymphocytes (%) (Auto) 28, Monocytes (%) (Auto) 9, Eosinophils (%) (Auto) 2, Basophils (%) (Auto) 0, Neutrophils # (Auto) 4.2, Lymphocytes # (Auto) 1.9, Monocytes # (Auto) 0.6, Eosinophils # (Auto) 0.2, Basophils # (Auto) 0.0, Immature Granulocyte # (Auto) 0.0, Prothrombin Time 12.6, INR Comment 0.9, Activated Partial Thromboplast Time 32, D-Dimer 1.73H, Sodium Level 142, Potassium Level 4.1, Chloride Level 108H, Carbon Dioxide Level 20L, Anion Gap 14, Blood Urea Nitrogen 9, Creatinine 0.75, Estimat Glomerular Filtration Rate 93, BUN/Creatinine Ratio 12, Glucose Level 102, Calcium Level 10.0, Corrected Calcium 9.8, Magnesium Level 2.0, Total Bilirubin 0.4, Aspartate Amino Transf (AST/SGOT) 22, Alanine Aminotransferase (ALT/SGPT) 18, Alkaline Phosphatase 124, Myoglobin 20.2, Troponin I < 0.028, B-Type Natriuretic Peptide 124.1H, Total Protein 7.5, Albumin 4.3 01/24/22 17:18: Troponin I < 0.028 01/25/22 05:26: Troponin I < 0.028, Triglycerides Level 149, Cholesterol Level 178, LDL Cholesterol Direct 122, VLDL Cholesterol 30, HDL Cholesterol 36L Radiology CT ANGIO CHEST W EXAMINATION: CT angiography of the chest. TECHNIQUE: Contrast enhanced thin section helical images were obtained through the chest with intravenous contrast timed for the optimal opacification of the arterial structures per CTA protocol. Post-processing, reconstructions and interpretation of angiographic images of the vessels was performed. 3D MIP reconstructions were performed and reviewed. All CT scans use one or more of the following dose optimizing techniques: Automated exposure control, MA and/or KvP adjustment based on a patient size and exam type, or iterative reconstruction. HISTORY: Chest pain and elevated D-dimer. COMPARISON: None available. FINDINGS: There is no pulmonary embolism. There is no edema or pneumonia. No pleural effusion. No pneumothorax. No suspicious nodules. There is no axillary or supraclavicular lymphadenopathy. There is no mediastinal lymphadenopathy. Heart size is normal. There are mild coronary artery calcifications. No pericardial effusion. Aorta is normal in caliber. Limited views of the upper abdomen are unremarkable. There are no suspicious osseous lesions. IMPRESSION: 1. No pulmonary embolism, clear lungs. Assessment/Plan Assessment/Plan Assessment and Plan Left-sided Chest Pain Hx CAD with stent placement HTN- resolved Cough- had COVID in November Anxiety- stable on paxil Tobacco Abuse EKG 01/25-- sinus rhythm, abnormal R prog (possibly due to lead placement), borderline T abn in ant lead MPI this morning per Dr. Hall Continue serial troponins Continue Plavix, ASA, and atorvastatin Nicotine patch yesterday Clinical Quality Measures AMI/AHF: ASA po Prior to arrival: Yes (81MG ASPIRIN AT HOME) Supervisory-Addendum Brief Verification & Attestation Participated in pt care: history, physical Personally performed: exam, history, supervision of care Care discussed with: Medical Student Procedures: n/a Results interpretation: Verified all documentation Patient seen and evaluated. Still with dull left upper chest pain. There is some tenderness in that area over the rib/chest wall on palpation. Plan is for stress test this morning. If that is normal will treat for musculoskeletal etiology with toradol and see if resolves unless cardiology feels needs cardiac cath. DANIELITO SOLANO Jan 25, 2022 07:15 CHRIS TSAI DO Jan 25, 2022 08:40
[2022-01-25 08:02] VITALS: BP 129/80
[2022-01-25] MEDS ORDERED: ASPIRIN 81 MG CHEW (CHILDREN'S ASA) PO SCH (09:00)
[2022-01-25] MEDS ORDERED: meTOproloL SUCCINATE 50 MG (TOPROL XL) TAB PO SCH (09:00)
[2022-01-25] MEDS ORDERED: PARoxetine 20 MG (PAXIL) TAB PO SCH (09:00)
[2022-01-25] MEDS ORDERED: PANTOPRAZOLE 40 MG (PROTONIX) VIAL IV SCH (09:00)
[2022-01-25] MEDS ORDERED: CLOPIDOGREL 75 MG (PLAVIX) TABLET PO SCH (09:00)
--- NOTE | 2022-01-25 09:45 | Progress Note - Cardiology ---
Cardiology SOAP Progress Note Subjective: Sitting up in chair at the bedside LACW discomfort unchanged from before No c/o SOB or palpitations Objective: I&O/Vital Signs 01/24/22 01/24/22 01/25/22 01/25/22 22:05 23:10 01:08 03:25 Temp 36.5 36.3 Pulse 64 69 61 53 Resp 20 20 B/P (MAP) 106/71 (83) 108/70 (83) 113/69 (84) Pulse Ox 95 96 O2 Delivery Room Air Room Air 01/25/22 01/25/22 01/25/22 07:00 08:02 08:15 Pulse 61 55 Resp 16 B/P (MAP) 129/80 (96) Pulse Ox 97 O2 Delivery Room Air Room Air 01/25/22 00:00 Intake Total 200 ml Balance 200 ml Weight (Pounds): 140 Weight (Calculated Kilograms): [id number] Constitutional: AAO x 3, well-developed, well-nourished Respiratory: No accessory muscle use, No respiratory distress; chest expansion is symmetric, chest is bilaterally symmetric, lungs clear to auscultation Cardiovascular: regular rate-rhythm; No JVD; S1 and S2 Gastrointestional: No tender; soft, round Extremities: no lower extremity edema bilateral Neurologic/Psychiatric: grossly intact (moves all extremities) Skin: No rash on exposed areas, No ulcerations on exposed areas Results/Procedures: Labs Laboratory Tests 01/24/22 13:39: White Blood Count 7.0, Red Blood Count 4.10, Hemoglobin 13.6, Hematocrit 40, Mean Corpuscular Volume 98, Mean Corpuscular Hemoglobin 33, Mean Corpuscular Hemoglobin Concent 34, Red Cell Distribution Width 12.4, Platelet Count 279, Mean Platelet Volume 9.6, Immature Granulocyte % (Auto) 0, Neutrophils (%) (Auto) 61, Lymphocytes (%) (Auto) 28, Monocytes (%) (Auto) 9, Eosinophils (%) (Auto) 2, Basophils (%) (Auto) 0, Neutrophils # (Auto) 4.2, Lymphocytes # (Auto) 1.9, Monocytes # (Auto) 0.6, Eosinophils # (Auto) 0.2, Basophils # (Auto) 0.0, Immature Granulocyte # (Auto) 0.0, Prothrombin Time 12.6, INR Comment 0.9, Activated Partial Thromboplast Time 32, D-Dimer 1.73H, Sodium Level 142, Potassium Level 4.1, Chloride Level 108H, Carbon Dioxide Level 20L, Anion Gap 14, Blood Urea Nitrogen 9, Creatinine 0.75, Estimat Glomerular Filtration Rate 93, BUN/Creatinine Ratio 12, Glucose Level 102, Calcium Level 10.0, Corrected C alcium 9.8, Magnesium Level 2.0, Total Bilirubin 0.4, Aspartate Amino Transf (AST/SGOT) 22, Alanine Aminotransferase (ALT/SGPT) 18, Alkaline Phosphatase 124, Myoglobin 20.2, Troponin I < 0.028, B-Type Natriuretic Peptide 124.1H, Total Protein 7.5, Albumin 4.3 01/24/22 17:18: Troponin I < 0.028 01/25/22 05:26: Troponin I < 0.028, Triglycerides Level 149, Cholesterol Level 178, LDL Cholesterol Direct 122, VLDL Cholesterol 30, HDL Cholesterol 36L Laboratory Tests 01/24/22 13:39 A/P: Assessment: Chest pain - undetermined etiology CAD. - Ac NSTEMI, treated with primary PCI in the late hours of 08/12/19. - Card cath and PCI of 08/12/19: Coronary artery disease consisting of proximal occlusion of a small caliber high diagonal branch of the left anterior descending to which successful balloon angioplasty was carried out with Emerge 1.5 x 8 mm balloon and which restored normal antegrade flow. The left anterior descending had 70% mid vessel stenosis to which successful stenting was carried out with Zack 2.0 x 15 mm stent with good results. The rest of the coronary vessels have mild plaques. Elevated left ventricular end-diastolic pressure. Well preserved global left ventricular systolic function with an ejection fraction of approximately 60%. - MPI of Jun 01, 2020 indicated an anteroapical infarction with a small amt of cholo-infarct ischemia which fits with her known CAD, no c/o CP at this time, localized anteroapical hypokinesis to akinesis. LVEF 52% Chronic tobacco use - cessation advised Strong fam h/o premature CAD Hypertension Hyperlipidemia - tansaminase elevation with doses higher than atorvastatin 40 mg daily) - followed by Dr. He Carotid dz - minimal on carotid u/s of Nov 2019 Plan: Chest pain of undetermined etiology - no evidence of ACS Continue home medications Add PPI Unable to accommodate stress test today per radiology Spoke at length with patient, she wishes to go home and have stress test done as an out patient We have advised her that if she has any changes or worsening of her chest discomfort to return to the ED She verbalizes understanding Clinical Quality Measures AMI/AHF: ASA po Prior to arrival: Yes (81MG ASPIRIN AT HOME) DEANN TELLEZ Jan 25, 2022 09:45
[2022-01-25] MEDS ORDERED: CLOP75TA28 PO ×2 (11:27)
[2022-01-25] MEDS ORDERED: MTP100TCR PO ×2 (11:27)
[2022-01-25] MEDS ORDERED: ACET-2267 PO ×2 (11:27)
[2022-01-25] MEDS ORDERED: ATOR40TA70 PO ×2 (11:27)
[2022-01-25] MEDS ORDERED: ASPI-1238 PO ×2 (11:27)
[2022-01-25] MEDS ORDERED: CHOL-34 PO ×2 (11:27)
[2022-01-25] MEDS ORDERED: MULT-1136 PO ×2 (11:27)
[2022-01-25] MEDS ORDERED: FAMO20TA5 PO ×2 (11:27)
[2022-01-25] MEDS ORDERED: KETOROLAC 30 MG/ML VIAL IVP NR (12:30)
[2022-01-25 12:33] VITALS: BP 131/74
--- NOTE | 2022-01-25 14:23 | Progress Note - Cardiology ---
Cardiology SOAP Progress Note Subjective: Continuous, vague, mild, left upper chest discomfort No other discomfort No shortness of breath or palp or syncope No focal weakness No n/v/d Objective: I&O/Vital Signs 01/25/22 01/25/22 01/25/22 01/25/22 03:25 07:00 08:02 08:15 Temp 36.3 Pulse 53 61 55 Resp 20 16 B/P (MAP) 113/69 (84) 129/80 (96) Pulse Ox 96 97 O2 Delivery Room Air Room Air Room Air 01/25/22 12:33 Temp 37.1 Pulse 58 Resp 18 B/P (MAP) 131/74 (93) Pulse Ox 97 O2 Delivery Room Air 01/25/22 00:00 Intake Total 200 ml Balance 200 ml Weight (Pounds): 140 Weight (Calculated Kilograms): 63.362352 Constitutional: AAO x 3, well-developed, well-nourished Respiratory: No accessory muscle use, No respiratory distress; chest expansion is symmetric, chest is bilaterally symmetric, lungs clear to auscultation Cardiovascular: regular rate-rhythm; No JVD; S1 and S2 Gastrointestional: No tender; soft, round Extremities: no lower extremity edema bilateral Neurologic/Psychiatric: grossly intact (moves all extremities) Skin: No rash on exposed areas, No ulcerations on exposed areas Results/Procedures: Labs Laboratory Tests 01/24/22 17:18: Troponin I < 0.028 01/25/22 05:26: Troponin I < 0.028, Triglycerides Level 149, Cholesterol Level 178, LDL Cholesterol Direct 122, VLDL Cholesterol 30, HDL Cholesterol 36L Laboratory Tests 01/24/22 13:39 A/P: Assessment: Chest discomfort, mild, continuous - undetermined etiology CAD. - Ac NSTEMI, treated with primary PCI in the late hours of 08/12/19. - Card cath and PCI of 08/12/19: Coronary artery disease consisting of proximal occlusion of a small caliber high diagonal branch of the left anterior descending to which successful balloon angioplasty was carried out with Emerge 1.5 x 8 mm balloon and which restored normal antegrade flow. The left anterior descending had 70% mid vessel stenosis to which successful stenting was carried out with Zack 2.0 x 15 mm stent with good results. The rest of the coronary vessels have mild plaques. Elevated left ventricular end-diastolic pressure. Well preserved global left ventricular systolic function with an ejection fraction of approximately 60%. - MPI of Jun 01, 2020 indicated an anteroapical infarction with a small amt of cholo-infarct ischemia which fits with her known CAD, no c/o CP at this time, localized anteroapical hypokinesis to akinesis. LVEF 52% Chronic tobacco use - cessation advised Strong fam h/o premature CAD Hypertension Hyperlipidemia - tansaminase elevation with doses higher than atorvastatin 40 mg daily) - followed by Dr. He Carotid dz - minimal on carotid u/s of Nov 2019 Plan: No evidence of ACS Unable to accommodate stress test - logistic barriers Spoke at length with patient, she wishes to go home and have stress test done as an out patient We have advised her that if she has any changes or worsening of her chest discomfort or new symptoms, she is to return to the ED She verbalizes understanding Clinical Quality Measures AMI/AHF: ASA po Prior to arrival: Yes (81MG ASPIRIN AT HOME) ISMAEL ANDRE MD FACP FACC CCDS Jan 25, 2022 14:23
== END 2022-01-25 12:55 | disposition home or self-care (01) ==
LOC: EDUNIT# 12:59 → ER 13:01 → INTOOBSV 15:22 → 4TH 15:22
PROVIDERS: ADMIT Family Medicine; ATTEND Family Medicine
DX: R07.89 Other chest pain (principal); I25.10 Atherosclerotic heart disease of native coronary artery without angina pectoris; I21.4 Non-ST elevation (NSTEMI) myocardial infarction; I10 Essential (primary) hypertension; I65.29 Occlusion and stenosis of unspecified carotid artery; E78.5 Hyperlipidemia, unspecified; R05.9 Cough, unspecified; F41.9 Anxiety disorder, unspecified; F17.210 Nicotine dependence, cigarettes, uncomplicated; Z79.899 Other long term (current) drug therapy; Z86.16 Personal history of COVID-19; Z95.5 Presence of coronary angioplasty implant and graft; Z79.01 Long term (current) use of anticoagulants; Z79.82 Long term (current) use of aspirin
CPT/HCPCS: 71045; 71275; 80053; 80061; 83735; 83874; 83880; 84484 ×2; 85025; 85379; 85610; 85730; 93005 ×2; 93041; 93306; 96360; 96361; 96374; 96375; 96376; 99284; G0378; 36415

== ENCOUNTER → 2022-01-27 | Outpatient (CLI) | payer BC ==
[~2022-01-27] VITALS: Ht 160 cm; Wt 62.0 kg
[~2022-01-27] MED LIST changes: +ACET-2267 PO; +AMLO5TAB4 PO; +ASPI-1238 PO; +ATOR40TA70 PO; +CATHETER FLUSH 10 ML SYR IVP PRN; +CHOL-34 PO; +MTP100TCR PO; +MULT-1136 PO; +PARO20TA5 PO; +REGADENOSON 0.4 MG/5 ML SYR (LEXISCAN) IV ONE
[2022-01-27 09:33] VITALS: BP 139/88
--- NOTE | 2022-01-27 17:06 | STRESS TEST ---
DATE OF SERVICE: 01/27/2022 RESTING AND POST REGADENOSON TECHNETIUM-99M TETROFOSMIN SPECT CT IMAGING ORDERING PHYSICIAN: Ansley Strauss APRN. PRIMARY PHYSICIAN: Dr. He. CLINICAL DIAGNOSIS: Coronary artery disease. Baseline images were carried out after injection of 10.41 mCi of technetium-99m Tetrofosmin. This was followed by 0.4 mg of Regadenoson and 28.8 mCi of technetium-99m Tetrofosmin for stress imaging. The electrocardiogram showed sinus rhythm at baseline. There is evidence of old anterolateral myocardial infarction on the electrocardiogram. There is nonspecific subtle ST and T-wave abnormality. The electrocardiogram did not change significantly with the Regadenoson infusion. The patient noted nausea and a hot feeling, which resolved in a few minutes. Review of images at rest and following stress indicates an anteroapical perfusion defect that appears to be partially transient. Gated images show anteroapical hypokinesis to akinesis. Left ventricular ejection fraction is calculated to be 59%. CONCLUSIONS: 1. This study is indicative of an anteroapical myocardial infarction with a moderate amount of ischemia . 2. Localized anteroapical hypokinesis to akinesis. 3. Well preserved global left ventricular systolic function with an ejection fraction of 59%. Job ID: [id number] DocumentID: [id number] Dictated Date: 01/27/2022 14:48:03 Technical Project Lead Date: 01/27/2022 17:05:20 Dictated By: ISMAEL ANDRE MD, MA, FACP, FACC,
== END ==
LOC: CARD 08:30
PROVIDERS: ATTEND Nurse Practitioner Family
DX: I25.10 Atherosclerotic heart disease of native coronary artery without angina pectoris (principal)
CPT/HCPCS: 78452; 93017; A9502

== ENCOUNTER 2022-02-07 11:00 | Day surgery (SDC) | payer BC ==
[2022-02-07] VITALS (9 sets, daily range): BP systolic 101–151; BP diastolic 68–95
[~2022-02-07] VITALS: Ht 160 cm; Wt 63.3 kg
[2022-02-07 09:27] LABS: HEMATOCRIT 44 % (35-52); HEMOGLOBIN 14.6 g/dL (11.5-16.0); MEAN CORPUSCULAR HEMOGLOBIN 33 pg (25-34); MEAN CORPUSCULAR HGB CONC 34 g/dL (32-36); MEAN CORPUSCULAR VOLUME 99 fL (80-99); MEAN PLATELET VOLUME 9.7 fL (9.0-12.2); PLATELET COUNT 311 10^3/uL (130-400); WHITE BLOOD COUNT 7.8 10^3/uL (4.3-11.0)
[2022-02-07 09:43] LABS: INR 0.9 (0.8-1.4); PROTHROMBIN TIME PATIENT 12.6 SEC (12.2-14.7)
[2022-02-07 09:51] LABS: ALBUMIN 4.3 GM/DL (3.2-4.5); BILIRUBIN,TOTAL 0.5 MG/DL (0.1-1.0); CALCIUM 9.9 MG/DL (8.5-10.1); CREATININE SERUM 0.79 MG/DL (0.60-1.30); POTASSIUM 4.2 MMOL/L (3.6-5.0); TOTAL PROTEIN 7.9 GM/DL (6.4-8.2)
[~2022-02-07 11:00] MED LIST changes: -CATHETER FLUSH 10 ML SYR IVP PRN; +HEParin (CATH LAB) 2,000 ML IV ONE; +LIDOCAINE 1% INJ 20 ML VIAL ONE; +NS IV 1000 ML 1,000 ML IV SCH; +NS IV 1000 ML 1,000 ML ONE; -REGADENOSON 0.4 MG/5 ML SYR (LEXISCAN) IV ONE; +VARE0.5T6 PO
[2022-02-07] MEDS ORDERED: fentaNYL INJ 100 MCG/2 ML AMP ONE (11:59)
[2022-02-07] MEDS ORDERED: MIDAZOLAM 5 MG/5 ML (VERSED) VIAL ONE (11:59)
[2022-02-07] MEDS ORDERED: NS IV 1000 ML 1,000 ML IV SCH (13:15)
[2022-02-07] MEDS ORDERED: PATIENT MAY USE OWN MEDS, ALL PO SCH (13:15)
--- NOTE | 2022-02-07 13:15 | Cardiac Procedure Note-CS/ASA ---
Pre-Procedure Note Pre-Op Procedure Note H&P Reviewed The H&P was reviewed, patient examined and no changes noted. Date H&P Reviewed: February 07, 2022 Time H&P Reviewed: 12:30 Conscious Sedation Pre-Proced Time 12:30 ASA Score 3 For ASA 3 and 4: Consider anesthesia and medical clearance. Also, for patients with a history of failed moderate sedation consider anesthesia. Airway Lungs Heart ASA score ASA 1: a normal healthy patient ASA 2: a patient with a mild systemic disease (mid diabetes, controlled hypertension, obesity ASA 3: a patient with a severe systemic disease that limits activity (angina, COPD, prior Myocardial infarction) ASA 4: a patient with an incapacitating disease that is a constant threat to life (CHF, renal failure) ASA 5: a moribund patient not expected to survive 24 hrs. (ruptured aneurysm) ASA 6: a declared brain- patient whose organs are being harvested. For emergent operations, add the letter E after the classification Mallampati Classification Grade 2 Sedation Plan Analgesia, Amnesia, Plan communicated to team members, Discussed options with patient/fam, Discussed risks with patient/fam The patient is an appropriate candidate to undergo the planned procedure, sedation, and anesthesia. The patient immediately re-assessed prior to indication. ISMAEL ANDRE MD FACP FAC CCDS February 07, 2022 13:15
--- NOTE | 2022-02-07 13:17 | Discharge Inst-Cardiology ---
Discharge Inst-Cardiac Discharge Medications Continued Medications: Acetaminophen (Tylenol Extra Strength) 500 Mg Tablet 1000 MG PO Q8H PRN for PAIN-MILD (1-4), TAB Aspirin (Aspirin EC) 81 Mg Tablet.dr 81 MG PO DAILY, TAB Atorvastatin Calcium (Atorvastatin Calcium) 80 Mg Tablet 80 MG PO DAILY, TAB Cetirizine HCl (Zyrtec) 10 Mg Tablet 10 MG PO DAILY, TAB Cholecalciferol (Vitamin D3) (Vitamin D3) 25 Mcg (1000 Unit) Tablet 25 MCG PO DAILY, TAB Clopidogrel Bisulfate (Clopidogrel) 75 Mg Tablet 75 MG PO Q48H, TAB Famotidine (Famotidine) 20 Mg Tablet 20 MG PO BID PRN for HEARTBURN, TAB Metoprolol Succinate (Metoprolol Succinate) 100 Mg Tab.er.24h 100 MG PO DAILY, TAB Multivitamin (Multivitamin) 1 Each Tablet 1 EACH PO DAILY, TAB Paroxetine HCl (Paroxetine HCl) 20 Mg Tablet 20 MG PO DAILY, TAB Varenicline Tartrate (Varenicline Tartrate) 0.5 Mg Tablet 1 MG PO BID, TAB ISMAEL ANDRE MD FACP FAC CCDS February 07, 2022 13:17
--- NOTE | 2022-02-07 13:18 | Discharge Inst-Post CATH ---
Discharge Inst-CATH/EP Post Cardiac Cath/EP D/C Inst Follow Up/Plan F/u with Dr Hall in 2 weeks ACTIVITY * Go Home directly and rest. * Limit activity of the leg (or wrist if it was used) for 7 days including aerobics, swimming, jogging, bicycling, etc. * Restrict stair-climbing for 7 days if possible, if not, climb up with your n on-cath leg, then bring together on the same step. * Avoid lifting, pushing, pulling or excessive movement of the affected ex tremity for 7 days. * Customary sexual activity may be resumed after 2 days-use caution not to use a position that strains or causes pain to the affected extremity. * No driving for 24 hours. * NO SMOKING. * Avoid straining for bowel movements for 7 days. * Gentle walking on level ground is allowed. * Returning to work will depend on the type of procedure and the results. Your doctor will discuss this with you. CALL YOUR DOCTOR FOR ANY OF THE FOLLOWING: *If bleeding from the puncture site occurs- Apply gentle pressure to site with clean cloth and call your doctor or EMS. * If a knot or lump forms under the skin, increases in size, or causes pain. * If bruising appears to be worsening or moving further down your leg instead of disappearing. * Temperature above 101 F. CARE OF YOUR GROIN INCISION; * Bruising or purple discoloration of the skin near the puncture site is common. * You may shower only, no bathtub bathing for 5 days. Be careful to avoid slipping as your leg may feel stiff. * If a closure device was used on your femoral artery, please see the attached guide regarding care of the device and your leg. * Leave dressing on FOR 24 hours. CARE OF YOUR WRIST INCISION; * Bruising or purple discoloration of the skin near the puncture site is common. * You may shower. * DO NOT submerge wrist. * Leave dressing on FOR 24 hours. ISMAEL HALL MD FACP FAC CCDS February 07, 2022 13:18
--- NOTE | 2022-02-07 14:38 | CARDIAC CATHETERIZATION ---
DATE OF SERVICE: 02/07/2022 CARDIAC CATHETERIZATION REPORT The patient is a 56-year-old lady with known coronary artery disease, who has previously had stenting of the mid left anterior descending and balloon angioplasty of a diagonal. She underwent a myocardial perfusion imaging study, which has shown localized anterolateral infarction with considerable ischemia. Cardiac catheterization was, therefore, recommended and informed consent was obtained. DESCRIPTION OF PROCEDURE: She was brought to the cardiac catheterization laboratory in a fasting state. Right groin was prepared and draped in the usual sterile fashion. Lidocaine 1% was used for local anesthesia. Modified Seldinger technique was used to advance a 5-Cymraes sheath in right femoral artery angiography. Angiography of the right femoral artery was carried out through the sheath. We used 5-Cymraes JL4 catheter for left coronary angiography. 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 Nevertheless, we obtained adequate views with nonselective engagement with multiple catheters and with an aortic root angiogram. A 5-Cymraes pigtail catheter was used to carry out left heart catheterization, left ventricular angiography. The pigtail was pulled back to the aortic root and aortic root angiography was also performed. The catheter was removed and Mynx was used to achieve hemostasis following sheath removal. HEMODYNAMICS: Left ventricular end-diastolic pressure following coronary angiography was 21 mmHg. There was no significant pressure gradient on pullback across the aortic valve. Ascending aortic pressure was 127/73 with a mean of 95 mmHg. LEFT VENTRICULAR ANGIOGRAPHY: Left ventricular angiography was carried out in the right anterior oblique projection. There is localized anterolateral hypokinesis to akinesis. Left ventricular ejection fraction is approximately 50 to 55%. CORONARY ANGIOGRAPHY: Left main coronary artery is free of significant disease. Left anterior descending artery has a widely patent stent in its mid portion. Mild plaque is seen involving the left anterior descending and the diagonal. The left circumflex artery has approximately 40% mid vessel stenosis. 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 It is a dominant vessel and does not exhibit significant obstructive disease. CONCLUSIONS: 1. Relatively mild coronary artery disease. 2. Patent stent in the mid left anterior descending and approximately 40% mid vessel stenosis of the left circumflex. 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 3. Elevated left ventricular end-diastolic pressure. 4. Localized anterolateral hypokinesis to akinesis. 5. Well preserved global left ventricular systolic function with ejection fraction of 50 to 55%. DISCUSSION AND RECOMMENDATIONS: Based on results of the study, it appears appropriate to continue a conservative approach. Risk factor modification has been reviewed. Current regimen is being continued and she has been advised for outpatient followup in the next one or two weeks for further adjustment, as needed. Job ID: [id number] DocumentID: [id number] Dictated Date: 02/07/2022 13:37:59 Ese Teacher Date: 02/07/2022 14:37:08 Dictated By: ISMAEL ANDRE MD, MA, FACP, FACC,
== END 2022-02-07 16:30 | disposition home or self-care (01) ==
LOC: CATH 11:00 → SDC 13:32 → CATH 16:30
PROVIDERS: ATTEND Internal Medicine Cardiovascular Disease
DX: I25.10 Atherosclerotic heart disease of native coronary artery without angina pectoris (principal); I10 Essential (primary) hypertension; I65.23 Occlusion and stenosis of bilateral carotid arteries; E78.2 Mixed hyperlipidemia; R94.39 Abnormal result of other cardiovascular function study; F17.210 Nicotine dependence, cigarettes, uncomplicated; Z79.899 Other long term (current) drug therapy
CPT/HCPCS: 80053; 80061; 85027; 85610; 85730; 87081; 93005; 93458; 93567; C1760; C1894; 36415

== ENCOUNTER → 2023-04-13 | Outpatient (CLI) | payer BC, OTHER ==
[~2023-04-13] MED LIST changes: -HEParin (CATH LAB) 2,000 ML IV ONE; -LIDOCAINE 1% INJ 20 ML VIAL ONE; -NS IV 1000 ML 1,000 ML IV SCH; -NS IV 1000 ML 1,000 ML ONE
--- NOTE | 2023-04-13 13:41 | Diagnostic Imaging Report ---
INDICATION: Ankle pain EXAMINATION: Right ankle 04/13/2023 FINDINGS: 3 views of the ankle. There is soft tissue swelling about the ankle. No displaced fractures or dislocations appreciated. Ankle mortise intact. IMPRESSION: 1. Soft tissue swelling with no fractures identified. If pain persists follow-up recommended. Dictated by: Dictated on workstation # [id number]
--- NOTE | 2023-04-13 17:29 | Diagnostic Imaging Report ---
EXAMINATION: Right foot, three views. HISTORY: Foot pain and swelling. COMPARISON: None available. FINDINGS: There has been a surgery of the right first metatarsal and proximal phalanx possibly representing a bunionectomy. There are screws in the fifth metatarsal. No acute fracture is seen. 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 No acute fracture. IMPRESSION: 1. No acute fracture. 2. Moderate first metatarsophalangeal osteoarthritis. Dictated by: Dictated on workstation # [id number]
== END ==
LOC: RAD 11:55
PROVIDERS: ATTEND Family Medicine
DX: M19.071 Primary osteoarthritis, right ankle and foot (principal)
CPT/HCPCS: 73610; 73630

== ENCOUNTER → 2023-06-01 | Outpatient (CLI) | payer OTHER ==
--- NOTE | 2023-06-01 14:54 | Diagnostic Imaging Report ---
EXAMINATION: Left wrist 3 or more views HISTORY: Wrist fracture COMPARISON: 04/30/2023 FINDINGS: There is a healing nondisplaced fracture of left distal radius. There is a minimally displaced fracture of the ulnar styloid process. The alignment is unchanged. Joint spaces are normal. IMPRESSION: 1. Healing nondisplaced fracture of the left distal radius. 2. Minimally displaced fracture of ulnar styloid process fracture. 3. No change in alignment from prior exam. Dictated by: Dictated on workstation # [id number]
== END ==
LOC: RAD 13:33
PROVIDERS: ATTEND Family Medicine
DX: S62.102D Fracture of unspecified carpal bone, left wrist, subsequent encounter for fracture with routine healing (principal); S52.502D Unspecified fracture of the lower end of left radius, subsequent encounter for closed fracture with routine healing; X58.XXXD Exposure to other specified factors, subsequent encounter
CPT/HCPCS: 73110

== ENCOUNTER → 2023-06-08 | Outpatient (CLI) | payer OTHER ==
--- NOTE | 2023-06-08 13:15 | Diagnostic Imaging Report ---
INDICATION: Routine screening. Comparison is made with prior mammogram from 02/06/2017. 2-D and 3-D bilateral screening mammography was performed with CAD. Scattered fibroglandular densities are identified bilaterally. Nodular densities left breast appear stable and most consistent benign etiology. No spiculated mass or malignant-appearing microcalcifications are seen. Axillae are unremarkable. IMPRESSION: No mammographic features suspicious for malignancy are identified. ACR BI-RADS Category 2: Benign findings. Result letter will be mailed to the patient. Note: At least 10% of breast cancer is not imaged by mammography. BI-RADS Category 2 Dictated by: Dictated on workstation # [id number]
== END ==
LOC: RAD 08:09
PROVIDERS: ATTEND Family Medicine
DX: Z12.31 Encounter for screening mammogram for malignant neoplasm of breast (principal)
CPT/HCPCS: 77063; 77067